=== PATIENT | female | born 1995 | race Caucasian/White ===

== ENCOUNTER 2017-10-12 03:45 | Emergency (ER) | payer OTHER ==
[~2017-10-12] VITALS: Ht 170.2 cm; Wt 52.0 kg
[~2017-10-12 03:45] MED LIST: BENTYL20 MG PO; CITRATE OF MAG296 ML PO; COLACE100 MG PO; NAPROSYN500 MG PO
[2017-10-12 04:17] LABS: HEMATOCRIT 39.5 % (36.0-46.0); HEMOGLOBIN 13.8 G/DL (11.9-15.5); MCH 28.1 PG (29.0-34.0); MCHC 34.9 G/DL (30.0-36.0); MCV 80.4 FL (83-99); PLATELET COUNT 376 K/uL (156-360); RBC DIS.WIDTH-CV 12.9 % (11.8-14.6); RBC DIS.WIDTH-SD 37.2 % (39-53); RED BLOOD COUNT 4.91 M/uL (3.80-5.20); WHITE BLOOD COUNT 10.3 K/uL (4.1-10.2)
[2017-10-12 04:27] LABS: ALBUMIN 4.3 g/dL (3.2-4.8); CHLORIDE 103 mEq/L (99-109); POTASSIUM 5.1 mEq/L (3.7-5.4); SODIUM 138 mEq/L (136-147)
[2017-10-12 04:30] LABS: GLUCOSE 139 mg/dL (70-99); TOTAL PROTEIN 8.3 g/dL (6.4-8.3)
[2017-10-12 04:31] LABS: TOTAL BILIRUBIN 0.8 mg/dL (0.0-1.0)
[2017-10-12 04:33] LABS: ALKALINE PHOSPHATASE 89 IU/L (3-129); CREATININE 0.9 mg/dL (0.6-1.3); GFR ESTIMATE (CALCULATED) > 59 mL/min/
[2017-10-12 04:34] LABS: UREA NITROGEN (BUN) 12 mg/dL (9-23)
[2017-10-12 04:35] LABS: AST (GOT) 34 IU/L (2-34)
[2017-10-12 04:36] LABS: ALT (GPT) 42 IU/L (3-49); CREATINE KINASE 55 IU/L (1-294)
[2017-10-12 04:37] LABS: TROP-I INTERPRETATION NEGATIVE; TROPONIN-I < 0.01 ng/mL (0.0-0.30)
[2017-10-12 08:07] VITALS: BP 128/79
== END 2017-10-12 08:08 | disposition home or self-care (01) ==
LOC: EME 03:45
PROVIDERS: Emergency Medicine
DX: F14.10 Cocaine abuse, uncomplicated (principal); R00.0 Tachycardia, unspecified; F17.200 Nicotine dependence, unspecified, uncomplicated
CPT/HCPCS: 80053; 82550; 84484; 85027; 93005; 99281; 99285; J2060; J7030